=== PATIENT | male | born 1990 | race African-American/Black ===

== ENCOUNTER 2017-10-15 10:55 | Emergency (ER) | payer OTHER ==
[2017-10-15] MEDS: IBUPROFEN 800 MG TABLET. PO (12:08)
== END 2017-10-15 14:05 | disposition home or self-care (01) ==
LOC: ER 10:55
DX: S62.152A Displaced fracture of hook process of hamate [unciform] bone, left wrist, initial encounter for closed fracture (principal); V49.49XA Driver injured in collision with other motor vehicles in traffic accident, initial encounter; Y93.I9 Activity, other involving external motion; Y92.488 Other paved roadways as the place of occurrence of the external cause; Y99.8 Other external cause status
CPT/HCPCS: 29105; 73030; 73130; 99284

== ENCOUNTER 2018-06-17 09:19 | Emergency (ER) | payer OTHER ==
[~2018-06-17] VITALS: Ht 182.9 cm; Wt 92.1 kg
[~2018-06-17 09:19] MED LIST: HYDR-3164 PO
[2018-06-17] MEDS ORDERED: TRAM50TA PO (10:44)
[2018-06-17] MEDS ORDERED: CYCL5TAB PO (10:44)
--- NOTE | 2018-06-17 10:45 | PHYS DOC ---
Past Medical History Past Medical History: No Pertinent History Past Surgical History: No Surgical History Alcohol Use: Occasionally Drug Use: None Adult General Chief Complaint Chief Complaint: BACK PAIN - NO INJURY [facility] HPI Patient is a 28 year old male who presents with low back pain with no injury. The patient states that he pulled a muscle. He states that he did this before when he was running track in high school. He denies spontaneous loss of bowel or bladder, so numbness or foot drop. He also has some ongoing problems with ADHD. I explained that we do not treat this diagnoses in the emergency department but will be happy to give him a referral for primary care. Review of Systems Review of Systems Constitutional: Denies fever or chills [] Respiratory: Denies cough or shortness of breath [] Cardiovascular: No additional information not addressed in HPI [] GI: Denies abdominal pain, nausea, vomiting, bloody stools or diarrhea [] : Denies dysuria or hematuria [] Musculoskeletal: See history of present illness Integument: Denies rash or skin lesions [] Neurologic: Denies headache, focal weakness or sensory changes [] Endocrine: Denies polyuria or polydipsia [] All other systems were reviewed and found to be within normal limits, except as documented in this note. Allergies Allergies Allergies Coded Allergies Type Severity Reaction Last Updated Verified No Known Drug Allergies 10/15/17 No Physical Exam Physical Exam Constitutional: Well developed, well nourished, no acute distress, non-toxic appearance. [] HENT: Normocephalic, atraumatic, bilateral external ears normal, oropharynx moist, no oral exudates, nose normal. [] Eyes: PERRLA, EOMI, conjunctiva normal, no discharge. [] Neck: Normal range of motion, no tenderness, supple, no stridor. [] Cardiovascular:Heart rate regular rhythm, no murmur [] Lungs & Thorax: Bilateral breath sounds clear to auscultation [] Abdomen: Bowel sounds normal, soft, no tenderness, no masses, no pulsatile masses. [] Skin: Warm, dry, no erythema, no rash. [] Back: tenderness to right accessory muscles with no gross deformities or step- offs noted, no CVA tenderness. [] Extremities: No tenderness, no cyanosis, no clubbing, ROM intact, no edema. [] Neurologic: Alert and oriented X 3, normal motor function, normal sensory function, no focal deficits noted. [] Psychologic: Affect normal, judgement normal, mood normal. [] Current Patient Data Vital Signs Vital Signs Date Time Temp Pulse Resp B/P (MAP) Pulse Ox O2 Delivery O2 Flow Rate FiO2 06/17/18 10:23 97.8 66 14 125/63 (83) 98 Room Air 97.8 EKG EKG [] Radiology/Procedures Radiology/Procedures [] Course & Med Decision Making Course & Med Decision Making Pertinent Labs and Imaging studies reviewed. (See chart for details) [] Dragon Disclaimer Dragon Disclaimer This electronic medical record was generated, in whole or in part, using a voice recognition dictation system. Departure Departure Impression: Primary Impression: Back pain Disposition: HOME, SELF-CARE Condition: STABLE Referrals: NO PCP (PCP) Patient Instructions: Back Pain, Adult Additional Instructions: Take the medications as prescribed. These medications may cause drowsiness. Do not drive or operate heavy machinery while taking them. Follow-up with a primary care provider for further evaluation of your back pain and for evaluation of your ADHD. If worsening return to the emergency department. Scripts Tramadol Hcl (TRAMADOL HCL) 50 Mg Tablet 50 MG PO DAILY PRN for PAIN, #14 TAB 0 Refills Prov: JAZMIN ALEGRE APRN 06/17/18 Cyclobenzaprine Hcl (CYCLOBENZAPRINE HCL) 5 Mg Tablet 1 TAB PO QHS for back pain, #30 TAB Prov: JAZMIN ALEGRE APRN 06/17/18 JAZMIN ALEGRE APRN Jun 17, 2018 10:45
[2018-06-17 10:54] VITALS: BP 171/85
== END 2018-06-17 10:50 | disposition home or self-care (01) ==
LOC: ER 09:19
DX: M54.5 Low back pain (principal)
CPT/HCPCS: 99283